=== PATIENT | female | born 1995 | race Caucasian/White ===

== ENCOUNTER 2025-03-29 01:35 | Emergency (ER) | payer MEDICAID, SELFPAY ==
[2025-03-29 01:48] VITALS: BP 123/74; PULSE 107; RESP 16; TEMP 36.8; O2SAT 97; BMI 23.6
--- NOTE | 2025-03-29 02:35 | ED.ALCOHOL ---
HPI - Alcohol General Chief Complaint: ETOH/Substance Use Stated Complaint: ETOH Time Seen by Provider: 03/29/25 02:35 Source: patient Mode of arrival: ambulatory Limitations: no limitations History of Present Illness ED Provider: HPI narrative: patient has had few drinks in the bar earlier denied any other substance abuse no signs of injury ambulatory friend is with her Related Data Home Medications ?Medication ?Instructions ?Recorded ?Confirmed prednisone 20 mg tablet 20 mg PO DAILY 08/30/20 prednisone 20 mg tablet 20 mg PO DAILY 11/07/20 azithromycin 250 mg tablet See Rx Instructions PO .COMPLEX 03/21/21 Previous Rx's ?Medication ?Instructions ?Recorded prednisone 10 mg tablet 10 mg PO DAILY 6 days #12 tabs 01/01/21 albuterol sulfate 90 mcg/actuation 2 puff inhalation Q6H PRN 01/15/21 aerosol inhaler (ProAir HFA) shortness of breath or wheezing 30 days #8.5 grams albuterol sulfate 2.5 mg/3 mL 2.5 mg (3 mL) inhalation TID PRN 03/21/21 (0.083 %) solution for nebulization shortness of breath or wheezing 30 days #90 mL Allergies Allergy/AdvReac Type Severity Reaction Status Date / Time No Known Allergies Allergy Verified 03/29/25 01:54 Review of Systems Review of Systems: Yes all other systems are reviewed and are negative [facility] Social History Social History Alcohol intake: current Smoked in Last 30 Days: Yes Use of substances other than those prescribed or required for medical reasons: No Advance Directives: No Advance Directives Information Provided: Yes Physical Exam ED Vital Signs: Vital Signs - 24 hr 03/29/25 01:48 03/29/25 02:42 Temperature 98.2 F 98.2 F Pulse Rate 107 H 107 H Respiratory Rate 16 16 Blood Pressure 123/74 123/74 Pulse Oximetry 97 97 Oxygen Delivery Method Room Air Room Air BMI result Body Mass Index 23.6 Appearance: Alert. Oriented X3. No acute distress. intoxicated Eyes: PERRLA, No Nystagmus ENT: Pharynx normal. Oral Mucosa moist Neck: Normal inspection. Neck supple. CVS: Normal heart rate and rhythm. Pulses normal. Respiratory: No respiratory distress. Equal air entry bilateral, no wheezing/rales/rhonchi Abdomen: Soft and nontender. Bowel sounds are present, no mass palpable, no CVA tenderness Skin: Skin warm and dry. Normal skin color. Normal skin turgor. Extremities: No lower extremity edema. No calf tenderness Neuro: Oriented X 3. No motor deficit. No sensory deficit.No cerebellar signs , cranial nerves II-XII intact Medical Decision Making Medical Decision Making MDM Narrative: patient's alcohol intoxication no signs of any other substance abuse family friends with the patient patient is able to stand and walk discharge patient home with family patient has refused any support Discharge Plan Discharge Clinical Impression: Alcoholic intoxication Patient Disposition: Home, Self-Care Instructions: Alcohol Intoxication (DC) Additional Instructions: stop drinking alcohol if any concerns follow detox Prescriptions: No Action prednisone 20 mg tablet 20 mg PO DAILY prednisone 20 mg tablet 20 mg PO DAILY prednisone 10 mg tablet 10 mg PO DAILY 6 Days Qty: 12 0RF Rx Instructions: Take 3 tabs x2 days, take 2 tabs x2 days, take 1 tab x2 days. albuterol sulfate [ProAir HFA] 90 mcg/actuation HFA aerosol inhaler 2 puff inhalation Q6H PRN (Reason: shortness of breath or wheezing) 30 Days Qty: 8.5 3RF albuterol sulfate 2.5 mg /3 mL (0.083 %) solution for nebulization 2.5 mg inhalation TID PRN (Reason: shortness of breath or wheezing) 30 Days Qty: 90 1RF Interventions: ED Discharge Assessment Last Done: 03/29/25 02:42 Discharge Date/Time: 03/29/25 02:42 Print Language: Pashto
--- NOTE | 2025-03-29 02:37 | PC.NURSE ---
per MD herndon patient can go home as long as she has sober ride. sober ride roommate, Chema came to crab picker patient. pt ambulatory with a steady gait out of tx room at time of d/c.
[2025-03-29 02:42] VITALS: BP 123/74; PULSE 107; RESP 16; TEMP 36.8; O2SAT 97
== END 2025-03-29 02:42 | disposition home or self-care (01) ==
PROVIDERS: Emergency Provider Internal Medicine; PCP Internal Medicine
DX: F10.220 Alcohol dependence with intoxication, uncomplicated (principal); Y90.9 Presence of alcohol in blood, level not specified; F19.10 Other psychoactive substance abuse, uncomplicated
CPT/HCPCS: 99282; 99284